=== PATIENT | female | born 1975 | race Caucasian/White ===

== ENCOUNTER 2024-05-14 08:19 | Emergency (ER) | payer OTHER, SELFPAY ==
[2024-05-14] VITALS (9 sets, daily range): BP systolic 109–117; BP diastolic 61–70; PULSE 69–87; RESP 14; TEMP 36.5; O2SAT 99–100; BMI 18.6
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
--- NOTE | 2024-05-14 08:41 | PC.NURSE ---
Pt denies right shoulder pain, right wrist pain, right hand pain. Pain starts mid forarm and goes to mid upper arm.
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
== END 2024-05-14 10:23 | disposition home or self-care (01) ==
PROVIDERS: Emergency Provider Emergency Medicine
DX: S52.121A Displaced fracture of head of right radius, initial encounter for closed fracture (principal); S20.211A Contusion of right front wall of thorax, initial encounter; V19.9XXA Pedal cyclist (driver) (passenger) injured in unspecified traffic accident, initial encounter
CPT/HCPCS: 29105; 71101; 73080; 73200; 99284